=== PATIENT | female | born 1995 | race Caucasian/White ===

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

== ENCOUNTER → 2018-07-16 | Outpatient (CLI) | payer BC ==
[~2018-07-16] MED LIST: BIRTH CONTROL
== END ==
LOC: COL.RAD 09:36
DX: R10.32 Left lower quadrant pain (principal); Z87.42 Personal history of other diseases of the female genital tract